=== PATIENT | male | born 1935 | race Caucasian/White ===

== ENCOUNTER 2018-02-16 16:49 | Observation (INO) | payer OTHER ==
[~2018-02-16] VITALS: Ht 177.8 cm; Wt 95.9 kg
[~2018-02-16 16:49] MED LIST: HYDR-3245 PO; OXYC10TA6 PO; TAMS-11 PO; TAMS0.4C2 PO
[2018-02-16] MEDS ORDERED: ASPIRIN 81 MG TABLET CHEW ONE (17:06)
[2018-02-16 17:27] LABS: BASOPHILS # (AUTO) 0.02 x10^3/uL (0-0.1); BASOPHILS % (AUTO) 1 % (0-1); EOSINOPHILS # (AUTO) 0.04 x10^3/uL (0-0.4); EOSINOPHILS % (AUTO) 1 % (1-7); LYMPHOCYTES # (AUTO) 1.24 x10^3/uL (1-3.4); LYMPHOCYTES % (AUTO) 36 % (22-44); MD NO; MEAN CORPUSCULAR HEMOGLOBIN 31.5 pg (27.5-34.5); MEAN CORPUSCULAR HGB CONC 33.9 g/dL (33.2-36.2); MEAN CORPUSCULAR VOLUME 93.1 fL (81-97); MEAN PLATELET VOLUME 6.7 fL (7.4-10.4); MONOCYTES # (AUTO) 0.11 x10^3/uL (0.2-0.8); MONOCYTES % (AUTO) 3 % (2-9); NEUTROPHILS # (AUTO) 1.99 x10^3/uL (1.8-6.8); NEUTROPHILS % (AUTO) 59 % (42-75); PLATELET COUNT 152 x10^3/uL (130-400); RED BLOOD COUNT 4.57 x10^6/uL (4.38-5.82); RED CELL DISTRIBUTION WIDTH 15.5 % (9.4-14.8)
[2018-02-16] MEDS ORDERED: ASPIRIN 81 MG TABLET EC PO ONE (17:30)
[2018-02-16] MEDS ORDERED: SODIUM CHLORIDE FLUSH 10ML SYR IVF ONE (17:30)
[2018-02-16 17:37] LABS: ALBUMIN 3.6 g/dL (3.4-5.0); ANION GAP 3 mmol/L (5-15); CHLORIDE 108 mmol/L (98-107); CREATININE 1.21 mg/dL (0.7-1.3)
[2018-02-16] MEDS ORDERED: ACET650S21 PO (17:37)
[2018-02-16] MEDS ORDERED: METH500T7 PO (17:37)
[2018-02-16] MEDS ORDERED: RANI-276 PO (17:37)
[2018-02-16] MEDS ORDERED: ASPIRIN 81 MG TABLET EC ONE (18:12)
[2018-02-16] MEDS ORDERED: ONDANSETRON 4 MG TABLET PO PRN (19:00)
[2018-02-16] MEDS ORDERED: HYDROcodone/APAP 5/325 TABLET PO PRN (19:00)
[2018-02-16] MEDS ORDERED: TRAZODONE 50MG TABLET PO PRN (19:00)
[2018-02-16 19:45] VITALS: BP 180/80
[2018-02-16 19:47] LABS: HCT (SEDRATE) 42.6 % (39.2-51.8)
[2018-02-16] MEDS ORDERED: ATORVASTATIN 40 MG TABLET PO SCH (21:00)
[2018-02-17] MEDS ORDERED: METHOCARBAMOL 500 MG TABLET PO PRN
[2018-02-17 01:04] VITALS: BP 164/72
[2018-02-17 05:55] LABS: LDL/HDL RATIO 1.6 (0.5-3.0)
[2018-02-17 08:38] VITALS: BP 168/92
[2018-02-17] MEDS ORDERED: TAMSULOSIN 0.4 MG CAP.ER.24H PO SCH (09:00)
[2018-02-17] MEDS ORDERED: ASPIRIN 81 MG TABLET CHEW PO/NG SCH (09:00)
[2018-02-17] MEDS ORDERED: FAMOTIDINE 20 MG TABLET PO SCH (09:00)
[2018-02-17 18:23] VITALS: BP 126/70
[2018-02-17] MEDS ORDERED: HYDR-3341 PO (18:23)
[2018-02-17 18:25] VITALS: BP 150/73
[2018-02-17] MEDS ORDERED: hydrALAzine 20 MG/ML, 1ML IV ONE ×2 (18:30)
== END 2018-02-17 20:15 | disposition home or self-care (01) ==
LOC: MERGE 16:49 → ED 17:24 → INTOOBSV 18:25 → EDIP 18:25 → 4WST 19:45
PROVIDERS: ADMIT Internal Medicine; ATTEND Internal Medicine
DX: R47.1 Dysarthria and anarthria (principal); G45.9 Transient cerebral ischemic attack, unspecified; I10 Essential (primary) hypertension; I49.1 Atrial premature depolarization; K21.9 Gastro-esophageal reflux disease without esophagitis; N28.9 Disorder of kidney and ureter, unspecified; N40.0 Benign prostatic hyperplasia without lower urinary tract symptoms; I48.0 Paroxysmal atrial fibrillation
CPT/HCPCS: 36415; 70450; 70544; 71045; 80048; 80061; 82040; 85025; 85651; 92523; 93005; 93306; 93880; 97161; 97165; 99285; G0378